=== PATIENT | male | born 1960 | race African-American/Black ===

== ENCOUNTER 2017-03-25 10:24 | Emergency (ER) | payer BC ==
[~2017-03-25] VITALS: Ht 182.9 cm; Wt 97.9 kg
[2017-03-25 11:25] LABS: HEMATOCRIT 38.5 % (36.0-46.0); MEAN PLAT.VOLUME 9.7 uM^3 (9.5-12.4); PLATELET COUNT 239 K/uL (156-360); RBC DIS.WIDTH-CV 12.5 % (11.8-14.6); RBC DIS.WIDTH-SD 41.5 % (39-53); RED BLOOD COUNT 4.23 M/uL (3.80-5.20); WHITE BLOOD COUNT 10.8 K/uL (4.1-10.2)
[2017-03-25 11:35] LABS: CHLORIDE 105 mEq/L (99-109)
[2017-03-25 11:36] LABS: SODIUM 140 mEq/L (136-147)
[2017-03-25 11:38] LABS: GLUCOSE 96 mg/dL (70-99)
[2017-03-25 11:39] LABS: ANION GAP 8 MEQ/L (2-14)
[2017-03-25 11:40] LABS: TOTAL BILIRUBIN 0.9 mg/dL (0.0-1.0)
[2017-03-25 11:41] LABS: ALKALINE PHOSPHATASE 58 IU/L (3-129); GFR ESTIMATE (CALCULATED) > 59 mL/min/
[2017-03-25 11:43] LABS: UREA NITROGEN (BUN) 11 mg/dL (9-23)
[2017-03-25 11:44] LABS: ADD MIUA? YES; BILIRUBIN NEGATIVE; BLOOD NEGATIVE; COLOR YELLOW ((YELLOW)); GLUCOSE (STRIP) NEGATIVE; KETONES NEGATIVE; LEUKOCYTES TRACE; NITRITE NEGATIVE; PROTEIN (STRIP) NEGATIVE; SPECIFIC GRAVITY 1.015 (1.000-1.030)
[2017-03-25 11:51] LABS: BACTERIA RARE /HPF; CALCIUM OXALATE CRYSTALS 1+ /HPF; EPITHELIAL CELLS RARE /HPF; MUCUS TRACE /LPF; RED BLOOD CELLS 0-5 /HPF (0-5); UCUL ADDED? YES
[2017-03-25] MEDS ORDERED: LORTAB 5-325 M1 EACH PO (13:00)
[2017-03-25] MEDS ORDERED: DOXYCYCLINE HY100 MG PO (13:00)
[2017-03-25 13:25] VITALS: BP 113/61
== END 2017-03-25 13:27 | disposition home or self-care (01) ==
LOC: EME 10:24 → EDSEX 10:24 → EME 13:27
PROVIDERS: Emergency Medicine
DX: K40.90 Unilateral inguinal hernia, without obstruction or gangrene, not specified as recurrent (principal); I10 Essential (primary) hypertension; E11.9 Type 2 diabetes mellitus without complications
CPT/HCPCS: 74177; 80053; 81003; 85027; 87077; 87086; 99281; 99284; J2270

== ENCOUNTER 2017-05-01 05:30 | Day surgery (SDC) | payer BC ==
[~2017-05-01] VITALS: Ht 182.9 cm; Wt 82.1 kg
[~2017-05-01 05:30] MED LIST: ALDACTONE100 MG PO; DOXYCYCLINE HY100 MG PO; ESTRACE2 MG PO; GLUCOPHAGE1000 MG PO; LORTAB 5-325 M1 EACH PO; PERCOCET 5/31 TABLET PO; PRINIVIL20 MG PO
[2017-05-01 06:20] LABS: ADD MIUA? YES; BILIRUBIN NEGATIVE; BLOOD NEGATIVE; COLOR YELLOW ((YELLOW)); GLUCOSE (STRIP) NEGATIVE; KETONES NEGATIVE; LEUKOCYTES SMALL; NITRITE NEGATIVE; PROTEIN (STRIP) NEGATIVE; SPECIFIC GRAVITY 1.025 (1.000-1.030)
[2017-05-01 06:25] LABS: MCH 32.5 PG (29.0-34.0); MCHC 35.3 G/DL (30.0-36.0); MCV 92.2 FL (86-99); MEAN PLAT.VOLUME 9.7 uM^3 (9.0-12.4); NRBC (%) 0.2 /100 WBC (0-0); PLATELET COUNT 241 K/uL (156-360); RBC DIS.WIDTH-CV 12.3 % (11.8-14.6); RBC DIS.WIDTH-SD 41.1 % (39-53); RED BLOOD COUNT 4.12 M/uL (4.00-5.50); WHITE BLOOD COUNT 8.3 K/uL (4.1-10.2)
[2017-05-01 06:26] VITALS: BP 140/92
[2017-05-01 06:34] LABS: BACTERIA NONE SEEN /HPF; EPITHELIAL CELLS RARE /HPF; MUCUS TRACE /LPF
[2017-05-01 06:40] LABS: POINT-OF-CARE METER ID UU14174212
[2017-05-01 06:54] LABS: ANION GAP 6 MEQ/L (2-14); CHLORIDE 106 MEQ/L (99-109); GFR ESTIMATE (CALCULATED) > 59 mL/min/; GLUCOSE 116 mg/dL (70-99); POTASSIUM 3.5 MEQ/L (3.7-5.4); SAMPLE HEMOLYSIS CHECK 0; SAMPLE ICTERIC CHECK 0; SAMPLE LIPEMIA CHECK 0; SODIUM 140 MEQ/L (136-147); UREA NITROGEN (BUN) 15 mg/dL (9-23)
[2017-05-01] MEDS ORDERED: PERCOCET 5/31 TABLET PO (09:57)
[2017-05-01 10:36] LABS: POINT-OF-CARE METER ID UU13113675
[2017-05-01 11:26] VITALS: BP 130/70
[2017-05-01 12:25] VITALS: BP 128/75
[2017-05-01 12:43] VITALS: BP 136/77
== END 2017-05-01 12:57 | disposition home or self-care (01) ==
LOC: SDC 05:30
PROVIDERS: Surgery
PROC: 0YU54JZ Supplement Right Inguinal Region with Synthetic Substitute, Percutaneous Endoscopic Approach (ICD-10-PCS; principal; 2017-05-01)
DX: K40.90 Unilateral inguinal hernia, without obstruction or gangrene, not specified as recurrent (principal); I10 Essential (primary) hypertension; E11.9 Type 2 diabetes mellitus without complications; B19.20 Unspecified viral hepatitis C without hepatic coma; F64.0 Transsexualism; N28.1 Cyst of kidney, acquired; Z79.84 Long term (current) use of oral hypoglycemic drugs
CPT/HCPCS: 80048; 81003; 82948; 85027; 93005; C1727; C1781; J0131; J0690; J1100; J1170; J1885; J2250; J2405; J3010

== ENCOUNTER 2017-10-30 00:46 | Emergency (ER) | payer SELFPAY ==
[~2017-10-30] VITALS: Ht 182.9 cm; Wt 77.2 kg
[2017-10-30 03:10] LABS: HEMATOCRIT 34.7 % (38.0-50.0); HEMOGLOBIN 11.8 G/DL (12.5-16.6); PLATELET COUNT 213 K/uL (156-360); RBC DIS.WIDTH-CV 14.4 % (11.8-14.6); RBC DIS.WIDTH-SD 49.3 % (39-53); RED BLOOD COUNT 3.69 M/uL (4.00-5.50); WHITE BLOOD COUNT 8.8 K/uL (4.1-10.2)
[2017-10-30 03:20] LABS: ALBUMIN 3.6 g/dL (3.2-4.8); CHLORIDE 109 mEq/L (99-109); POTASSIUM 3.9 mEq/L (3.7-5.4); SODIUM 141 mEq/L (136-147)
[2017-10-30 03:22] LABS: GLUCOSE 92 mg/dL (70-99); TOTAL PROTEIN 6.7 g/dL (6.4-8.3)
[2017-10-30 03:24] LABS: TOTAL BILIRUBIN 0.9 mg/dL (0.0-1.0)
[2017-10-30 03:26] LABS: ALKALINE PHOSPHATASE 56 IU/L (3-129); GFR ESTIMATE (CALCULATED) > 59 mL/min/ (58.99-99999)
[2017-10-30 03:27] LABS: AST (GOT) 18 IU/L (2-34); UREA NITROGEN (BUN) 15 mg/dL (9-23)
[2017-10-30 03:29] LABS: ALT (GPT) 11 IU/L (3-49)
[2017-10-30 03:58] VITALS: BP 135/65
== END 2017-10-30 03:59 | disposition home or self-care (01) ==
LOC: EME 00:46
DX: E11.649 Type 2 diabetes mellitus with hypoglycemia without coma (principal); Z79.84 Long term (current) use of oral hypoglycemic drugs; I10 Essential (primary) hypertension; F31.9 Bipolar disorder, unspecified
CPT/HCPCS: 80053; 82948; 85027; 99281; 99283